=== PATIENT | female | born 1950 | race Caucasian/White ===

== ENCOUNTER 2016-12-22 09:25 | Day surgery (SDC) | payer OTHER, BC ==
[2016-12-21 14:20] VITALS: BMI 24.0
[2016-12-22] MEDS ORDERED: PROPOFOL 20 ML ONE ×2 (10:58)
[2016-12-22 11:40] VITALS: TEMP 97.6
[2016-12-22 12:58] VITALS: BP 110/59; PULSE 91
--- NOTE | 2016-12-23 11:43 | PATH ---
Surgical Pathology Report Patient Name: MO ROLON [facility]. Rec. #: [id number] /Age/Gender: 1950 (Age: 66) / F Account: [id number] Location: [facility]-ENDOSCOPY Taken: 12/22/2016 Received: 12/22/2016 Reported: 12/23/2016 Physicians: Monty Rueda M.D. Specimen(s) Received A: RIGHT COLON POLYP B: DISTAL SPLENIC FLEXURE POLYP Clinical History Adenoma surveillance Polyps, diverticulosis Final Diagnosis A. COLON, RIGHT, BIOPSY: COLONIC MUCOSA WITH SMALL LYMPHOID AGGREGATE WITHIN LAMINA PROPRIA. NO ADENOMATOUS CHANGES IDENTIFIED. B. COLON, DISTAL SPLENIC FLEXURE, POLYPECTOMY: TUBULAR ADENOMA. NO HIGH GRADE DYSPLASIA OR CARCINOMA IDENTIFIED. Comment: Recommend correlation with clinical findings and follow up as clinically indicated. Electronically Signed Migel Hillman M.D. Gross Description A. Received in formalin, labeled "right colon polyp" are 2 bautista, irregular portions of soft tissue measuring 0.1 and 0.5 cm. in greatest dimension. The specimens are submitted in toto in one cassette. B. Received in formalin, labeled "distal splenic flexure polyp" is a bautista, polypoid portion of soft tissue measuring 0.9 x 0.6 x 0.4 cm. The specimen is bisected and entirely submitted in one cassette. /12/22/2016 [facility]12/22/2016
== END 2016-12-22 12:59 | disposition home or self-care (01) ==
LOC: JASU-ENDO 09:25
PROVIDERS: ATTEND Internal Medicine Gastroenterology
PROC: 0DBL8ZX Excision of Transverse Colon, Via Natural or Artificial Opening Endoscopic, Diagnostic (ICD-10-PCS; 2016-12-22)
PROC: 0DBK8ZX Excision of Ascending Colon, Via Natural or Artificial Opening Endoscopic, Diagnostic (ICD-10-PCS; principal; 2016-12-22 10:00)
DX: Z86.010 Personal history of colon polyps (principal); D12.3 Benign neoplasm of transverse colon; I10 Essential (primary) hypertension; I48.91 Unspecified atrial fibrillation; D12.2 Benign neoplasm of ascending colon; K57.30 Diverticulosis of large intestine without perforation or abscess without bleeding; K64.8 Other hemorrhoids; Z98.0 Intestinal bypass and anastomosis status
CPT/HCPCS: 88305-TC